=== PATIENT | male | born 1995 | race Caucasian/White ===

== ENCOUNTER 2020-09-11 11:58 | Emergency (ER) | payer OTHER, SELFPAY ==
[2020-09-11 12:43] VITALS: BP 149/74; PULSE 96; RESP 18; TEMP 36.7; O2SAT 100
[2020-09-11 12:52] VITALS: BP 149/74; PULSE 96; RESP 18; TEMP 36.7; O2SAT 100
--- NOTE | 2020-09-11 12:57 | ED.URI ---
HPI - URI/Sore Throat General Chief Complaint: Upper Respiratory Infection Stated Complaint: Throat pain Time Seen by Provider: 09/11/20 12:57 Source: patient Mode of arrival: ambulatory Limitations: no limitations History of Present Illness HPI Narrative: Roly Angel is a 25 yo male with a PMH of asthma, and covid vaccinations, who comes to [facility] with complaint of 5 out of 10 sore throat that started on Monday; denied fever Patient is concerned that he has a sulfite allergy; states that he feels like this when he has had any kind of sulfites in it Related Data Allergies Allergy/AdvReac Type Severity Reaction Status Date / Time No Known Allergies Allergy Verified 09/11/20 12:36 Review of Systems Review of Systems: Narrative: CONSTITUTIONAL: Denies fever, chills, sweats. EYES: Denies visual changes, redness, discharge. ENT: Denies rhinorrhea, congestion, has sore throat, otalgia. CARDIOVASCULAR: Denies chest pain, palpitations, edema. RESPIRATORY: Denies dyspnea, wheezing, cough GASTROINTESTINAL: Denies abdominal pain, nausea, vomiting, diarrhea. GENITOURINARY: Denies dysuria, hematuria, abnormal discharge SKIN: Denies rash or itching. NEUROLOGIC: Denies numbness, or focal weakness. PSYCHIATRIC: Denies anxiety or depression. PMFSH Past Medical History Medical History No acute medical problems Family History Family History (Updated 09/11/20 @ 13:00 by Mari Solis CNP) Other No acute medical problems Social History Social History (Updated 09/11/20 @ 13:00 by Mari Solis CNP) Smoking status: Never smoker Alcohol intake: current Comments At time of signature, I agree with nursing past medical, surgical, social and family history. There is no relevant family history pertinent to the presenting complaint. Blood pressure elevated at the time of this [id number] with primary care physician Exam Narrative: Exam Narrative: GENERAL: This is a well-nourished, well-developed patient, in moderate distress. HEAD: normocephalic, atraumatic. EYES: PERRL. Sclera clear/white. Vision is grossly intact. EARS: External ears normal, auditory canals clear and without drainage, TMs normal without perforation. Hearing grossly intact. NOSE: External nose normal without nasal discharge, nares without redness, has rhinorrhea. THROAT: Mucous membranes moist, posterior pharynx erythema NECK: Neck supple, tender submandibular lymph nodes and mid trachea CARDIOVASCULAR: Regular rate and rhythm without murmurs, gallops, or rubs. RESPIRATORY: Clear to auscultation. Breath sounds equal bilaterally. No wheezes, rales, or rhonchi. GASTROINTESTINAL: Abdomen soft, , SKIN: warm, intact with no suspicious lesions or rash, good texture and turgor. NEURO: awake, alert, and oriented to person, place and time. There were no obvious focal neurologic abnormalities. Steady gait EXTREMITIES: Normal range of motion. BACK: Nontender without deformity Course Course Emergency Course: [facility] of sore throat that started on Monday-we discussed his observation that when he drinks things with sulfites and that that he starts to have what he feels like his sinus issues, is also exposure to sulfites-states he was in [facility] and is drinking moonshine in a bar that he believes uses sulfites to clean their barrels with a manufactured moonshine-this was probably not relevant to his current situation other than he may have contracted something from people in [place] because the symptoms should have cleared if he had no further exposure to sulfites alone Strep test was negative Started on prednisone 40 mg x 5 days and viscous lidocaine and start Zyrtec ; discussed that he should monitor fever and hydrate adequately, continue using ibuprofen for pain and Benadryl at night Vital Signs Vital signs: Vital Signs Temperature 98.0 F 09/11/20 12:43 Pulse
== END 2020-09-11 13:21 | disposition home or self-care (01) ==
PROVIDERS: Emergency Provider Nurse Practitioner
DX: J02.9 Acute pharyngitis, unspecified (principal); J45.909 Unspecified asthma, uncomplicated
CPT/HCPCS: 87081; 87880; 99203; G0463

== ENCOUNTER 2024-03-14 18:27 | Emergency (ER) | payer OTHER, SELFPAY ==
[2024-03-14 18:58] VITALS: BP 147/77; PULSE 112; RESP 18; TEMP 36.4; O2SAT 100
--- NOTE | 2024-03-14 21:41 | ED_ITS ---
HPI - Wound/Laceration General Chief Complaint: Wound/Laceration Stated Complaint: thumb lac Time Seen by Provider: 03/14/24 20:57 Source: patient Mode of arrival: ambulatory Limitations: no limitations History of Present Illness HPI narrative: Patient is a 29-year-old male who presents the ED with a laceration to his left thumb. Patient reports he was cutting vegetables for dinner tonight when he sustained a laceration to his left thumb. Denies any other injuries. Denies numbness. Tetanus is up-to-date. Related Data Allergies Allergy/AdvReac Type Severity Reaction Status Date / Time No Known Allergies Allergy Verified 09/11/20 12:36 Review of Systems Review of Systems: All systems reviewed & are unremarkable except as noted in HPI. All systems reviewed & are unremarkable except as noted in HPI and below PMFSH Past Medical History Medical History No acute medical problems Family History Family History Other No acute medical problems Social History Social History Smoking status: Never smoker Alcohol intake: current Exam Narrative: GENERAL: Well appearing, well-nourished, non-toxic, in no acute distress. HEAD: Normocephalic, atraumatic. RESPIRATORY: Airway patent, respirations nonlabored. CARDIOVASCULAR: Regular rate and rhythm. Radial pulses strong and easily palpable. MUSCULOSKELETAL: Moves all extremities. No gross deformities. SKIN: Warm, dry, normal color. Curvilinear laceration to distal L thumb edging just along distal nail plate. No active bleeding. Sensation intact. NEURO: A&O X3. Speech clear. No ataxic movements. PSYCHIATRIC: Appropriate mood and affect. Normal interaction. Course Vital Signs Vital signs: Vital Signs Temperature 97.5 F L 03/14/24 18:58 Pulse Rate 112 H 03/14/24 18:58 Respiratory Rate 18 03/14/24 18:58 Blood Pressure 147/77 H 03/14/24 18:58 Pulse Oximetry 100 03/14/24 18:58 Oxygen Delivery Room Air 03/14/24 18:58 Temperature 97.8 F 03/14/24 21:47 Pulse Rate 76 03/14/24 21:47 Respiratory Rate 18 03/14/24 21:47 Blood Pressure 138/82 03/14/24 21:47 Pulse Oximetry 99 03/14/24 21:47 Oxygen Delivery Room Air 03/14/24 18:58 Procedures Laceration Laceration 1: Date: 03/14/24 Time: 21:35 Site: hand (1st digit) Side (If applicable): left Size (cm): 1 Description: linear (curvilinear) and clean Depth: simple, single layer Local Anesthetic: lidocaine 1% Amount of anesthesia used (mL): 3 Pre-repair: wound explored and irrigated ====== Skin Level ====== Skin layer closed with: nylon Size (cm): 5-0 Number of sutures: 2 Technique: simple, interrupted ====== Subcutaneous Layer ====== ====== Muscle Layer ====== ====== Tendon Layer ====== MDM - Wound/Laceration MDM Narrative Medical decision making narrative: Laceration to left thumb. Neurovascularly intact. Repaired without complic ations. Tetanus up-to-date. Patient given wound care instructions and reasons to return. Discharged in stable condition. Medical Records Attestation: I reviewed the patient's medical records. Discharge Plan Discharge Clinical Impression: Laceration of left thumb Patient Disposition: Home, Self-Care Condition: Stable Instructions: Antibiotic Form, Care For Your Stitches (ED), Laceration (ED) Additional Instructions: Return to the ED or visit an urgent care or your PCP for follow-up and wound check/suture removal in 10 to 14 days. Keep the wound dry for 24 hours. You may remove the bandage after 24 hours and wash with simple soap and water, but do not scrub. Re-bandage as needed until laceration along nail edge is more healed. Return to the ED if you experience uncontrolled bleeding, fever, chills, pus-like drainage, or redness/swelling/warmth surrounding the wound, as these could be signs of an infection. Prescriptions: No Action prednisone 20 mg tablet 40 mg PO DAILY Qty: 10 0RF lidocaine HCl [Lidocaine Viscous] 2 % solution 1 applic mucous membrane TID PRN (Reason: pain) Qty: 100 0RF Rx Instructions: Swish and spit Follow-up/Referrals: UNKNOWN,DOCTOR [Primary Care Provider] - Time of Disposition: 21:42
[2024-03-14 21:47] VITALS: BP 138/82; PULSE 76; RESP 18; TEMP 36.6; O2SAT 99
== END 2024-03-14 21:48 | disposition home or self-care (01) ==
PROVIDERS: Emergency Provider Physician Assistant
DX: S61.012A Laceration without foreign body of left thumb without damage to nail, initial encounter (principal); W26.0XXA Contact with knife, initial encounter
CPT/HCPCS: 12001; 99282